=== PATIENT | male | born 1930 | race Caucasian/White ===

== ENCOUNTER 2017-06-13 08:21 | Inpatient (IN) | payer MEDICARE ==
[~2017-06-13] VITALS: Ht 182.9 cm; Wt 78.0 kg
--- NOTE | 2017-06-13 08:26 | NUR ---
BIB [facility] C/O CHEST PAIN, NON RADIATING SINCE LAST NIGHT, WORSENING THIS MORNING, NAD NOTED, VSS, PUT ON HOSPITAL GONE, EKG DONE, AT BS.
[2017-06-13 08:48] LABS: BASOPHILS % (AUTO) 0.1 % (0.0-2.0); EOSINOPHILS % (AUTO) 0.4 % (0.0-6.0); HEMATOCRIT 41 % (39-51); HEMOGLOBIN 13.7 g/dL (13.5-17.5); LYMPHOCYTES # (AUTO) 0.7 /CMM (0.8-4.8); LYMPHOCYTES % (AUTO) 6.7 % (20.0-44.0); MEAN CORPUSCULAR HEMOGLOBIN 31 PG (26.0-33.0); MEAN CORPUSCULAR HGB CONC 33 g/dl (31.0-36.0); MEAN CORPUSCULAR VOLUME 93 fL (80-96); MONOCYTES # (AUTO) 0.1 /CMM (0.1-1.30); MONOCYTES % (AUTO) 0.5 % (2.0-12.0); NEUTROPHILS # (AUTO) 10.2 /CMM (1.8-8.9); NEUTROPHILS % (AUTO) 92.3 % (43.0-81.0); PLATELET COUNT (AUTO) 195 /CMM (150-450); RDW COEFFICIENT OF VARIATION 13.4 (11.5-15.0); RED BLOOD CELL COUNT(AUTO) 4.45 MIL/uL (4.5-6.0)
[2017-06-13 09:01] LABS: CALCIUM, SERUM 9.1 mg/dL (8.5-10.1); CARBON DIOXIDE 26 mmol/L (21-32); CHLORIDE 103 mmol/L (98-107); GLUCOSE 166 mg/dL (74-106); POTASSIUM 3.7 mmol/L (3.5-5.1); SODIUM SERUM 139 mmol/L (136-145); UREA NITROGEN, BLOOD 16 mg/dL (7-18)
--- NOTE | 2017-06-13 09:05 | NUR ---
XRAY AT BS
[2017-06-13 09:07] LABS: ALANINE AMINOTRANSFERASE 139 U/L (12-78); ALBUMIN 3.5 g/dL (3.4-5.0); ALKALINE PHOSPHATASE 122 U/L (46-116); ASPARTATE AMINOTRANSFERASE 236 U/L (15-37); BILIRUBIN,DIRECT 0.5 mg/dL (0.0-0.2); BILIRUBIN,TOTAL 0.9 mg/dL (0.2-1.0); TOTAL PROTEIN, SERUM 6.9 g/dL (6.4-8.2)
[2017-06-13 09:09] LABS: TROPONIN I < 0.017 ng/mL (0.00-0.056)
[2017-06-13 09:11] LABS: INR 1.14 (0.87-1.13); PROTHROMBIN TIME 11.9 SECS (9.5-12.7)
[2017-06-13] MEDS ORDERED: SIMV20TA6 PO (09:20)
[2017-06-13] MEDS ORDERED: METF500T4 PO (09:20)
--- NOTE | 2017-06-13 09:30 | NUR ---
CALLED [facility] ITS DR. LANTIGUA
[2017-06-13 09:50] VITALS: BP 128/64
--- NOTE | 2017-06-13 09:50 | NUR ---
RN NOTES PT RECEIVED IN ROOM 101 FROM ER , A/Ox4, RESPIRATING EVEN AND UNLABORED, ON 02 2L N/C FOR COMFORT , PT [place] ANY CHEST PAIN AT THIS TIME . ON TELE JUNCTIONAL WITH PVC'S HR IN 100'S AT THIS TIME . R AC IV SITE G 18 CDI, NO SKIN ISSUES NOTED, STEADY GAIT , SR UP x3, CALL LIGHT WITHIN EASY REACH, BED LOCKED AND IN LOWEST POSITION , WILL CONTINUE TO MONITOR PT CLSOELY
[2017-06-13 10:00] VITALS: BP 128/64
[2017-06-13] MEDS ORDERED: MAG HYDROX/AL HYDROX/SIMETH 30 ML UDC PO PRN (10:00)
[2017-06-13] MEDS ORDERED: HYDROCODONE/APAP 5/325MG 1 EACH TABLET PO PRN (10:00)
[2017-06-13] MEDS ORDERED: ZOLPIDEM TARTRATE 5 MG TABLET PO PRN (10:00)
[2017-06-13] MEDS ORDERED: ONDANSETRON HCL/PF 4 MG/2 ML VIAL IVP PRN (10:00)
[2017-06-13] MEDS ORDERED: MORPHINE SULFATE INJ 2 MG/ML DISP.SYRIN IV PRN (10:00)
[2017-06-13] MEDS ORDERED: MAGNESIUM HYDROXIDE 30 ML UDC PO PRN (10:00)
[2017-06-13] MEDS ORDERED: Z GUARD REMEDY 2 OZ OINT TP PRN (10:00)
[2017-06-13] MEDS ORDERED: ACETAMINOPHEN 325 MG TABLET PO PRN (10:00)
[2017-06-13] MEDS ORDERED: NITROGLYCERIN 0.4 MG/TAB BOTTLE SL PRN (10:00)
[2017-06-13] MEDS: IV NS 0.9% 1,000 ML IV PRN ×2 (11:15→20:56)
[2017-06-13] MEDS: ASPIRIN EC 81 MG TABLET.DR PO SCH (11:16)
[2017-06-13] MEDS: VALSARTAN 80 MG TABLET PO SCH (11:16)
[2017-06-13 11:38] LABS: THYROID STIMULATING HORMONE 1.232 uIU/mL (0.358-3.74)
[2017-06-13 12:00] VITALS: BP_SYST 104; BP_DIAS 60; BP_DIAS 66
--- NOTE | 2017-06-13 14:00 | NUR ---
RN NOTES VSS STABLE , CHARLOTTE CHEST PAIN, CONTINUE TO MONITOR.
[2017-06-13 16:00] VITALS: BP 117/67
[2017-06-13] MEDS: METFORMIN 500 MG TABLET PO SCH (16:36)
--- NOTE | 2017-06-13 18:12 | NUR ---
RN NOTES PT EATING DINNER AT THIS TIME ,CHARLOTTE CHEST PAIN , VSS STABLE , NS AT 125CC/HR RUNNING VIA L AC IV SITE G 18, BED LOCKED AND IN LOWEST POSITION , SR UP x3, WILL ENDORSE TO SHEAR SETTER NURSE FOR TONY,
--- NOTE | 2017-06-13 19:30 | NUR ---
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 A/O X4 AND ABLE TO MAKE NEEDS KNOWN. ON 2L OF O2 AND SATURATING 97%. BREATHING REGULAR, EVEN AND UNLABORED. NO C/O CHEST PAIN OR DISCOMFORT AT THIS TIME. TELE- SINUS RHYTHM 74 WITH JUNCTIONAL EPISODES. IV LAC #18 CLEAN AND PATENT WITH FLUIDS RUNNING. REMINDED PT OF NPO STATUS AT MIDNIGHT FOR PROCEDURE IN THE MORNING. PT VERBALIZED UNDERSTANDING. BED LOCKED IN PLACE AND IN LOWEST POSITION. CALL LIGHT WITHIN REACH. WILL CONTINUE TO MONITOR.
[2017-06-13 20:00] VITALS: BP 147/80
[2017-06-13] MEDS ORDERED: SIMVASTATIN 20 MG TABLET PO SCH (22:00)
[2017-06-14] VITALS: BP_SYST 131; BP_SYST 147; BP_DIAS 73; BP_DIAS 80
[2017-06-14 04:00] VITALS: BP 138/89
[2017-06-14] MEDS: IV NS 0.9% 1,000 ML IV PRN (05:16)
--- NOTE | 2017-06-14 06:45 | NUR ---
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 NO ACUTE DISTRESS NOTED. NO C/O CHEST PAIN OR DISCOMFORT. ALL NEEDS ATTENDED TO PROMPTLY. 2L OF O2 WELL TOLERATED. IV IN PLACE, PATENT WITH FLUIDS RUNNING. NPO STATUS MAINTAINED. TELE- SR WITH OCCASIONAL JUNCTIONAL EPISODES. CALL LIGHT WITHIN REACH. WILL ENDORSE TO NEXT SHIFT FOR CONTINUITY OF CARE.
[2017-06-14 06:47] LABS: BASOPHILS % (AUTO) 0.2 % (0.0-2.0); EOSINOPHILS # (AUTO) 0.1 /CMM (0.0-0.7); EOSINOPHILS % (AUTO) 1.5 % (0.0-6.0); HEMATOCRIT 39 % (39-51); HEMOGLOBIN 13.2 g/dL (13.5-17.5); LYMPHOCYTES # (AUTO) 0.9 /CMM (0.8-4.8); LYMPHOCYTES % (AUTO) 9.4 % (20.0-44.0); MEAN CORPUSCULAR HEMOGLOBIN 32 PG (26.0-33.0); MEAN CORPUSCULAR HGB CONC 34 g/dl (31.0-36.0); MEAN CORPUSCULAR VOLUME 92 fL (80-96); MONOCYTES # (AUTO) 0.7 /CMM (0.1-1.30); MONOCYTES % (AUTO) 7.4 % (2.0-12.0); NEUTROPHILS # (AUTO) 7.9 /CMM (1.8-8.9); NEUTROPHILS % (AUTO) 81.5 % (43.0-81.0); PLATELET COUNT (AUTO) 168 /CMM (150-450); RDW COEFFICIENT OF VARIATION 13.7 (11.5-15.0); RED BLOOD CELL COUNT(AUTO) 4.18 MIL/uL (4.5-6.0); WHITE BLOOD COUNT (AUTO) 9.7 K/uL (4.3-11.0)
[2017-06-14 06:55] LABS: ALANINE AMINOTRANSFERASE 406 U/L (12-78); ALBUMIN 2.9 g/dL (3.4-5.0); ALKALINE PHOSPHATASE 150 U/L (46-116); ASPARTATE AMINOTRANSFERASE 289 U/L (15-37); BILIRUBIN,DIRECT 0.4 mg/dL (0.0-0.2); BILIRUBIN,TOTAL 1.4 mg/dL (0.2-1.0); CALCIUM, SERUM 8.3 mg/dL (8.5-10.1); CARBON DIOXIDE 27 mmol/L (21-32); CHLORIDE 106 mmol/L (98-107); CREATININE 0.8 mg/dL (0.6-1.3); GLUCOSE 107 mg/dL (74-106); MAGNESIUM 1.6 mg/dL (1.8-2.4); PHOSPHORUS 2.7 mg/dL (2.5-4.9); POTASSIUM 3.8 mmol/L (3.5-5.1); SODIUM SERUM 139 mmol/L (136-145); TOTAL PROTEIN, SERUM 6.2 g/dL (6.4-8.2); UREA NITROGEN, BLOOD 12 mg/dL (7-18)
[2017-06-14 06:56] LABS: TROPONIN I < 0.017 ng/mL (0.00-0.056)
--- NOTE | 2017-06-14 07:00 | NUR ---
TELE NOTE RECEIVED PT ON BED ,A/O X4 AND ABLE TO MAKE NEEDS KNOWN. RESPIRATION EVEN AND UNLABORED, ON 2L OF O2 AND SATURATING 97%. CHARLOTTE CHEST PAIN , TELE- SINUS RHYTHM IN 70'S WITH JUNCTIONAL EPISODES. LAC IV SITE #18 CLEAN AND PATENT WITH FLUIDS NS RUNNING AT 125CC/HR , NPO THIS AM FOR STRESS TEST , BED LOCKED AND IN LOWEST POSITION . CALL LIGHT WITHIN EASY REACH. WILL CONTINUE TO MONITOR
[2017-06-14 07:12] LABS: CHOLESTEROL 102 mg/dL (<200); HDL CHOLESTEROL 40 mg/dL (40-60); LDL 58 mg/dL (0-99); THYROID STIMULATING HORMONE 0.493 uIU/mL (0.358-3.74); TRIGLYCERIDES 40 mg/dL (30-150)
[2017-06-14 08:00] VITALS: BP 164/93
[2017-06-14] MEDS ORDERED: REGADENOSON 0.4 MG/5 ML DISP.SYRIN IVP ONE (08:00)
[2017-06-14] MEDS: VALSARTAN 80 MG TABLET PO SCH (08:14)
[2017-06-14] MEDS: METFORMIN 500 MG TABLET PO SCH (09:57)
[2017-06-14] MEDS: ASPIRIN EC 81 MG TABLET.DR PO SCH (09:57)
[2017-06-14 12:00] VITALS: BP 129/72
[2017-06-14] MEDS: Magnesium 1GM/D5W 100ML PREMIX 100 ML IV SCH ×2 (13:01→14:12)
--- NOTE | 2017-06-14 15:44 | NUR ---
RN NOTES PT STATED THAT DR LOWE TOLD HIM HE IS GOING TO DISCHARGE HIM TODAY .DR Sharda ANDRADE PAGED ,PHONE ORDER RECEIVED TO DISCHARGE THE PT HOME . DISCHARGE INSTRUCTION GIVEN TO PT . PT VERBALIZES UNDERSTANDING, NO SKIN ISSUE NOTED , IV SITE DISCONTINUED, PT LEFT THE FLOOR AMBULATORY TO MAIN ENTRANCE ACCOMPANIED BY STAFF MEMBER AND FAMILY IN STABLE CONDITION .
== END 2017-06-14 15:44 | disposition home or self-care (01) | DRG 206 ==
LOC: ER 08:23 → TELE1 09:45 → MEDSG1 06-14 12:46
DX: M94.0 Chondrocostal junction syndrome [Tietze] (principal); G62.9 Polyneuropathy, unspecified; E11.9 Type 2 diabetes mellitus without complications; K76.0 Fatty (change of) liver, not elsewhere classified; E78.5 Hyperlipidemia, unspecified; I10 Essential (primary) hypertension; R74.0 Nonspecific elevation of levels of transaminase and lactic acid dehydrogenase [LDH]; F32.9 Major depressive disorder, single episode, unspecified; Z87.891 Personal history of nicotine dependence; R79.89 Other specified abnormal findings of blood chemistry; Z90.79 Acquired absence of other genital organ(s); Z79.84 Long term (current) use of oral hypoglycemic drugs
CPT/HCPCS: 36415; 71010-TC; 76705-TC; 80048-TC; 80053-TC; 80061-TC; 80076-TC; 83735-TC; 84100-TC; 84439-TC; 84443-TC; 84484-TC; 85025-TC; 85730-TC; 87081-TC; 93307-TC; A9502; J2785; J3475; J7030